=== PATIENT | male | born 1985 | race Caucasian/White ===

== ENCOUNTER 2018-04-09 17:54 | Emergency (ER) | payer OTHER ==
[~2018-04-09] VITALS: Ht 177.8 cm; Wt 74.8 kg
[~2018-04-09 17:54] MED LIST: AMOXIL 875 MG875 MG PO; FIORICET 300 MG1 CAP PO; MOTRIN800 MG PO; PREDNISONE 20MG20 MG PO
--- NOTE | 2018-04-09 19:10 | ED GENERAL ADULT ---
See Addendum History of Present Illness General Chief Complaint: Psychiatric Related Complaint Stated Complaint: PT IS TALKING ABOUT KLILLING HIMSELF Source: patient, family Exam Limitations: no limitations Vital Signs & Intake/Output Vital Signs & Intake/Output Vital Signs Date Time Temp Pulse Resp B/P B/P Pulse O2 O2 Flow FiO2 Mean Ox Delivery Rate 04/09 1804 98.2 81 15 137/83 98 Room Air Room Air Allergies Coded Allergies: No Known Allergies (04/09/18) Reconcile Medications No Known Home Medications Triage Note: PT TO ED WITH MOTHER FOR C/C OF +SI WITH A PLAN EARLIER TO "STEAL A GUN AND SHOOT MYSELF." PT REPORTS HE DOES NOT HAVE FIRE ARM ACCESS AT HOME. HAS BEEN HOSPITALIZED FOR +SI THOUGHTS IN PAST. HX OF BIPOLAR, SUBSTANCE ABUSE, PTSD. PT DENIES HI/AH/VH. Triage Nurses Notes Reviewed? yes HPI: Patient is a 32-year-old male with a long past medical history of depression and suicidal attempts including to hanging attempts and one attempt via stuffing socks into his tailpipe in a garage, who is reluctantly in today by his mother for suicidal intent again. The patient states that he "does not want to be here ," and plans to steal his father's pistol and shoot himself in the head. During my interview he still desires to do this. Past History Travel History Traveled to [place] past 21 day No Medical History Any Pertinent Medical History? 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 No Review of Systems Review of Systems Constitutional: Reports: see HPI. EENTM: Reports: no symptoms. Respiratory: Reports: no symptoms. Cardiovascular: Reports: no symptoms. GI: Reports: no symptoms. Genitourinary: Reports: no symptoms. Musculoskeletal: Reports: no symptoms. Skin: Reports: no symptoms. Neurological/Psychological: Reports: emotional problems. Hematologic/Endocrine: Reports: no symptoms. Immunologic/Allergic: Reports: no symptoms. All Other Systems: Reviewed and Negative Physical Exam Physical Exam General Appearance: well developed/nourished, no apparent distress, alert Comments: HEENT: Inspection of the head reveals a normocephalic cranium with no signs of trauma. Ophtho: Extraocular muscles are intact. The sclera are noninjected, and there is no obvious discharge. Neck: No signs of trauma or asymmetry to the neck. Respiratory: The patient exhibits no signs of labored breathing. Cardiac: Non-tachycardic. GI: No gross abdominal distention. : Deferred Neuro: The patient is oriented to person, place, time, and situation, with no obvious focal motor deficits. Cranial nerves II through XII are intact, and gait is normal. Behavioral: Agitated but not currently hostile. Actively suicidal. Dermatologic: Dermatologic examination reveals no obvious rashes or exanthems. Core Measures ACS in differential dx? No CVA/TIA Diagnosis: No Sepsis Present: No Sepsis Focused Exam Completed? No Progress Differential Diagnoses I considered the following diagnoses in my evaluation of the patient: Suicidality Plan of Care: Orders Procedure Date/time Status Regular Diet 04/10 B Active Continuous Observation Monitor 04/09 1819 Active URINE DRUGS OF ABUSE 04/09 181 Active ED CRISIS PSYCH CONSULT 04/09 181 Active URINE DRUG SCREEN FOR ER ONLY 04/09 180 Active URINALYSIS 04/09 180 Active ETHANOL 04/09 180 Active COMPREHENSIVE METABOLIC PANEL 04/09 180 Active CBC WITHOUT DIFFERENTIAL 04/09 180 Active ED CRISIS PSYCH CONSULT 04/09 180 Active Initial ED EKG: none Hand-Off Endorsed To: Sergo Pelayo MD Comments: Patient referred to crisis and sign out to Dr. Pelayo at shift change. Likely evaluation late tonight or tomorrow for likely psychiatric admission. Departure Departure Disposition: STILL A PATIENT Condition: Stable Clinical Impression Primary Impression: Suicidal behavior Qualifiers: Attempted self-injury: without attempted self-injury Qualified Code : R46.89 - Other symptoms and signs involving appearance and behavior Referrals: Patient Has No Primary Care Dr (PCP/Family) Departure Forms: Customer Survey General Discharge Information Prescriptions: Current Visit Scripts No Known Home Medications Critical Care Note Critical Care Note Critical Care Time: non-applicable
[2018-04-09 19:41] LABS: ABSOLUTE BASOPHIL COUNT 0 /CUMM (0.0-0.2); ABSOLUTE EOSINOPHIL COUNT 0.2 /CUMM (0.0-0.7); ABSOLUTE LYMPH COUNT 2.1 /CUMM (1.2-3.4); ABSOLUTE MONOCYTE COUNT 0.5 /CUMM (0.10-0.60); BASOPHIL % 0.5 % (0.0-2.0); EOSINOPHIL % 3.1 % (0-5); GRANULOCYTE % 58.4 % (42.2-75.2); HEMATOCRIT 47.1 % (42-52); MEAN CORPUSCULAR HGB 30.8 PG (27.0-31.0); MEAN CORPUSCULAR HGB CONC 34.1 G/DL (33.0-37.0); MEAN CORPUSCULAR VOLUME 90.4 FL (80.0-94.0); MEAN PLATELET VOLUME 8.6 FL (7.4-10.4); PLATELET COUNT 330 /CUMM (130-400); RBC DISTRIBUTION WIDTH 12.8 % (11.5-14.5); RED BLOOD CELL CT 5.21 /CUMM (4.70-6.10); WHITE BLOOD CELL COUNT 6.9 /CUMM (4.8-10.8)
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
[2018-04-10 13:36] VITALS: BP 121/75
== END 2018-04-10 15:11 | disposition short-term general hospital (02) ==
LOC: ERH 17:54
PROVIDERS: Physician Assistant
DX: R45.851 Suicidal ideations (principal)
CPT/HCPCS: 80307; 81001; 93005; 93010; G0463; G0480